=== PATIENT | female | born 1995 | race Caucasian/White ===

== ENCOUNTER 2018-03-02 22:09 | Emergency (ER) | payer MEDICAID ==
[~2018-03-02] VITALS: Ht 162.6 cm; Wt 113.4 kg
[2018-03-02 22:22] VITALS: BP_SYST 137
[2018-03-02] MEDS ORDERED: KETOROLAC TROMETHAMINE 60 MG/2 ML VIAL IM ONE (23:45)
[2018-03-03 01:02] VITALS: BP_SYST 128
== END 2018-03-03 01:02 | disposition home or self-care (01) ==
LOC: SED 22:09
DX: S53.401A Unspecified sprain of right elbow, initial encounter (principal); Z88.8 Allergy status to other drugs, medicaments and biological substances; X58.XXXA Exposure to other specified factors, initial encounter; Y93.89 Activity, other specified; Y92.89 Other specified places as the place of occurrence of the external cause; Y99.8 Other external cause status
CPT/HCPCS: 73070; 96372; 99284; J1885

== ENCOUNTER 2018-03-09 12:40 | Emergency (ER) | payer MEDICAID ==
[~2018-03-09] VITALS: Ht 162.6 cm; Wt 113.4 kg
[2018-03-09 12:45] VITALS: BP_SYST 106
[2018-03-09 13:09] LABS: BILIRUBIN,URINE NEGATIVE (NEGATIVE); BLOOD, URINE 2+ (NEGATIVE); CLARITY/URINE SL HAZY (CLEAR); COLOR,URINE YELLOW (YELLOW); GLUCOSE,URINE NEGATIVE (NEGATIVE); KETONES,URINE NEGATIVE (NEGATIVE); LEUKOCYTE ESTERASE ,URINE 1+ (NEGATIVE); NITRITE, URINE NEGATIVE (NEGATIVE); PROTEIN URINE NEGATIVE (NEGATIVE); UROBILINOGEN,URINE 0.2 (0.2-1.0)
[2018-03-09 13:20] LABS: BACTERIA,URINE MODERATE /HPF (None Seen); MUCUS,URINE None Seen /LPF (None Seen)
[2018-03-09] MEDS: SULFAMETHOXAZOLE/TRIMETHOPR DS 1 TABLET PO ONE (13:55)
[2018-03-09] MEDS: PHENAZOPYRIDINE HCL 100 MG TABLET PO ONE (13:55)
[2018-03-09 14:08] VITALS: BP_SYST 116
== END 2018-03-09 14:08 | disposition home or self-care (01) ==
LOC: SED 12:40
DX: N39.0 Urinary tract infection, site not specified (principal); M06.9 Rheumatoid arthritis, unspecified; Z90.49 Acquired absence of other specified parts of digestive tract; Z88.8 Allergy status to other drugs, medicaments and biological substances
CPT/HCPCS: 81000-TC; 87086; 99284